=== PATIENT | male | born 2000 | race Caucasian/White ===

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

== ENCOUNTER 2024-10-17 19:36 | Inpatient (IN) ==
--- NOTE | 2024-10-17 20:10 | Emergency Department Note ---
Impression & Plan SBO (small bowel obstruction), Chest pain, Abnormal EKG, Abdominal pain, Nausea ED Provider Note NAME: TEA DOCKERY AGE: 24 SEX: M : 2000 ARRIVES VIA: Walk-In INFORMANT: Patient, ED PROVIDER(S): Britton Ndiaye DO CHIEF COMPLAINT: Abdominal pain HPI: The patient is a 24-year-old male who presented to the emergency department for an evaluation of abdominal pain and chest pain. He describes a tightness as well as pain through his chest and into his abdomen. He has a history of scar tissue from previous surgery. He is also had nausea vomiting. He denies have any fever or rectal bleeding. He said no hematemesis. The patient does have a follow-up with his specialist. He was in our facility a few weeks ago for similar complaints. He was able to be treated and released. At that time he did have a CT of his chest abdomen and pelvis. No acute process was noted. ROS: See above HPI for pertinent positives & negatives. A total of 10 systems reviewed and were otherwise negative. PAST MEDICAL HISTORY: See Below PAST SURGICAL HISTORY: See Below FAMILY HISTORY: See Below SOCIAL HISTORY: See Below HOME MEDICATIONS: See Below ALLERGIES: See Below VITALS: See Below PHYSICAL EXAMINATION: GENERAL: Patient is awake alert in no acute distress patient is resting comfortably and showing no signs of anxiety EYES: The conjunctivae are clear. The pupils are round and reactive. EARS, NOSE, MOUTH AND THROAT: The nose is without any evidence of any deformity. Mucous membranes are moist. Tongue is midline. NECK: The neck is nontender and supple. RESPIRATORY: Normal respiratory effort is noted there is no evidence of wheezing rhonchi or rales CARDIOVASCULAR: Regular rate and rhythm noted there no murmurs rubs or gallops normal S1 normal S2. GASTROINTESTINAL: The abdomen was diffusely tender. There was no guarding rigidity noted. MUSCULOSKELETAL/EXTREMITIES: There is no evidence of gross deformity full range of motion is noted in the hips and shoulders. SKIN: There is no obvious evidence of any rash. There are no petechiae, pallor or cyanosis noted. NEUROLOGIC: Patient is awake alert and oriented x3 strength is symmetric patellar reflexes are 2+ bilaterally MEDICAL DECISION MAKING: The patient is a 24-year-old male who presented to the emergency department for abdominal pain. The patient had abdominal pain as well as chest pain. He was seen in our facility for similar complaints recently. The patient had x-rays initially that did show multiple loops of dilated small bowel. For this reason CT of the chest abdomen and pelvis were obtained. He did have some EKG abnormalities. I am unsure the significance of the EKG abnormalities as troponin was normal and CT angiography revealed no acute process. CT of the abdomen and pelvis however does show a partial small bowel obstruction with no definite transition point. The patient was treated with IV fluids and IV pain medication in the emergency department. He was also treated with IV antiemetics. On reevaluation he was somewhat improved. Given the patient's findings on CT I do not feel that he would be a good candidate for outpatient management at this point. For this reason I will discuss his condition with the on-call hospitalist. Triage Nursing notes reviewed. Prior medical records reviewed Vital Signs: reviewed and remarkable for no significant abnormalities Differential diagnosis: Etiologies such as appendicitis, diverticulitis, obstruction, inflammatory bowel disease, renal colic, PUD, biliary pathology, pancreatitis, mesenteric ischemia, aortic pathology, infections, genitourinary, UTI, perforated viscus, as well as others were entertained. ER treatment provided: See below Diagnostics interpreted by me: ECG: EKG was obtained in the emergency department. My interpretation is normal sinus rhythm at 87 bpm. There is no ectopy. Nonspecific T wave abnormalities were noted. This was compared to a tracing from July 30, 2024. The T wave abnormalities are new otherwise no specific changes were noted. Cardiac Monitoring: An order was placed for continuous cardiac monitoring. The monitor shows a rate of 92 bpm with sinus rhythm. Laboratory studies: As stated above and show below. Imaging studies: See below. Radiographic imaging was reviewed by myself Consultation(s): I discussed this case with Dr. Gongora who is on-call for the [facility] hospitalist group. Past Med/Surg History Problem List (Updated 10/17/24 @ 22:02 by Britton Ndiaye DO) Nausea (Acute) Abdominal pain (Acute) Abnormal EKG (Acute) Chest pain (Acute) SBO (small bowel obstruction) (Acute) Abdominal spasms Intestinal adhesions Encounter for chronic pain management Abdominal pain (Chronic) Chronic post-traumatic stress disorder (PTSD) (Chronic) Surgical History S/P laparotomy with lysis of adhesions Abdominal surgeries x 4 Social History Smoking Status: Current every day smoker Tobacco Type: E-cigarettes / Vaping Hx Alcohol Use: No Hx Substance Use: No Preferred Language: Khmer Communication Ability: Effective Visual Impairment: No Limitations Hearing Ability: Normal [employer] Required: No Beliefs That Will Affect Care: None marital status: Single Current Living Situation: Parent 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 [employer] Feels Safe at Home: Yes Allergies Allergies Allergy/AdvReac Type Severity Reaction Status Date / Time metoclopramide Allergy Unknown panic Verified 10/17/24 20:19 attack Home Meds Home Medications Medication Instructions Recorded Confirmed baclofen 15 mg tablet 15 mg PO TID 10/17/24 10/17/24 cyclobenzaprine 5 mg tablet 5 mg PO TID PRN Spasms 10/17/24 10/17/24 dicyclomine 10 mg capsule 10 mg PO QID 10/17/24 10/17/24 gabapentin 100 mg capsule 100 mg PO TID 10/17/24 10/17/24 ondansetron HCl 4 mg tablet 4 mg PO Q8H PRN Nausea And Vomiting 10/17/24 10/17/24 pantoprazole 20 mg tablet,delayed 20 mg PO DAILY 10/17/24 10/17/24 release propranolol 20 mg tablet 20 mg PO BID 10/17/24 10/17/24 Previous Rx's Medication Instructions Recorded gabapentin 800 mg tablet 800 mg PO TID #90 tabs 10/26/23 Results & Data (ED) Vital Signs Vital Signs - 24 hr 10/17/24 19:44 10/17/24 20:02 10/17/24 20:02 Temperature 36.7 C Temperature Source Oral Pulse Rate 97 H Pulse Rate [Apical] Pulse Rhythm Regular Pulse Rhythm [Apical] Pulse Strength Normal Pulse Strength [Apical] Respiratory Rate 18 Respiratory Effort / Characteristics Non-Labored Spontaneous Non-Labored Respiratory Depth Normal Normal Respiratory Pattern Regular Blood Pressure 131/98 Blood Pressure [Right Arm] Blood Pressure Mean 109 Blood Pressure Mean [Right Arm] Blood Pressure Position Sitting Blood Pressure Position [Right Arm] Pulse Oximetry 99 Oxygen Delivery Method Room Air Room Air Sepsis Recent Fever Within 48 Hours No Sepsis New/Unexplained Change in Mental Status N/A Sepsis Action Taken by Nursing No Action Required 10/17/24 20:02 10/17/24 20:04 10/17/24 21:20 Temperature Temperature Source Pulse Rate 93 H Pulse Rate [Apical] 92 H Pulse Rhythm Pulse Rhythm [Apical] Regular Pulse Strength Pulse Strength [Apical] Normal Respiratory Rate 20 Respiratory Effort / Characteristics Non-Labored Respiratory Depth Normal Respiratory Pattern Regular Blood Pressure Blood Pressure [Right Arm] 137/88 Blood Pressure Mean Blood Pressure Mean [Right Arm] 104 Blood Pressure Position Blood Pressure Position [Right Arm] Sitting Pulse Oximetry 100 Oxygen Delivery Method Room Air Room Air Sepsis Recent Fever Within 48 Hours Sepsis New/Unexplained Change in Mental Status Sepsis Action Taken by [facility] Medications Current Medication List: was personally reviewed by me Laboratory Data Attestation: I reviewed the patient's lab results. 10/17/24 19:55 10/17/24 19:55 Lab Results 10/17/24 Range/Units 19:55 WBC 10.43 (4.8-10.8) K/ul RBC 5.07 (4.70-6.10) M/uL Hgb 14.4 (14.0-18.0) g/dl Hct 42.5 (42.0-52.0) % MCV 83.8 (80.0-100.0) fL MCH 28.4 (25.0-34.0) pg MCHC 33.9 (32.0-36.0) g/dL RDW Std Deviation 36.2 L (36.4-46.3) fL RDW Coeff of Lucille 12.1 (11.5-14.5) % Plt Count 248 (130-400) K/uL MPV 12.0 (9.4-12.4) fL Immature Gran % (Auto) 0.3 % Neut % (Auto) 82.9 % Lymph % (Auto) 8.4 % [place] % (Auto) 7.0 % Eos % (Auto) 1.2 % Baso % (Auto) 0.2 % Neut # (Auto) 8.65 H (1.40-6.50) K/uL Lymph # (Auto) 0.88 L (1.20-3.40) K/uL [place] # (Auto) 0.73 H (0.11-0.59) K/uL Eos # (Auto) 0.12 (0.00-0.50) K/uL Baso # (Auto) 0.02 (0.00-0.20) K/uL Immature Gran # (Auto) 0.03 (0.01-0.20) K/uL D-Dimer 690 H* (0-500) ug/L FEU Sodium 139 (136-145) mmol/L Potassium 3.9 (3.5-5.1) mmol/L Chloride 100 (98-107) mmol/L Carbon Dioxide 31 (21-32) mmol/L Anion Gap 8 (3-11) BUN 15 (6-23) mg/dl Creatinine 0.97 (0.6-1.4) mg/dl Est Cr Clr Drug Dosing 91.7 ml/min eGFR 110.41 BUN/Creatinine Ratio 15.5 (10-20) Glucose 94 (70-99(Fasting)) mg/dl Calcium 9.7 (8.6-10.3) mg/dl Total Bilirubin 1.0 (0.2-1.0) mg/dl AST 15 (13-39) U/L ALT 10 (7-52) U/L Alkaline Phosphatase 59 (34-104) U/L Troponin I High Sens 2.8 (0-20) pg/ml Total Protein 8.3 (6.0-8.3) gm/dl Albumin 4.8 (3.4-5.0) gm/dl Globulin 3.5 (2.5-4.0) gm/dl Albumin/Globulin Ratio 1.4 (0.9-2) Lipase 22 (11-82) U/L Administered Medications Morphine Sulfate (Morphine Sulfate 4 Mg/Ml 1 Ml Carp\Vial) 4 mg IV Q15M PRN PRN Reason: Pain Stop: 10/31/24 20:01 Last Admin: 10/17/24 21:26 Dose: 4 mg Documented By: Admin: 10/17/24 20:35 Dose: 4 mg Documented By: RANJIT Discontinued Medications Sodium Chloride (Nss) 1,000 mls @ 999 mls/hr IV .Q1H1M ONE Stop: 10/17/24 21:02 Last Admin: 10/17/24 20:34 Dose: 999 mls/hr Documented By: RANJIT Ioversol (Optiray 320 125ml) 115 ml IV ONCE ONE Stop: 10/17/24 21:08 Last Admin: 10/17/24 21:07 Dose: 115 ml Documented By: NETTA Ondansetron HCl (Ondansetron Inj 2 Mg/Ml 2 Ml Vial) 4 mg IV NOW STA Stop: 10/17/24 20:03 Last Admin: 10/17/24 20:36 Dose: 4 mg Documented By: RANJIT Imaging Data Attestation: I personally reviewed and interpreted this imaging study as follows: My Impression: 1 view chest x-ray was obtained in the emergency department. My interpretation is no free air or definite infiltrate, final report below. 1 view KUB was obtained in the emergency department. My interpretation is multiple loops of dilated small bowel, final report pending. CT of the abdomen pelvis was obtained in the emergency department. My interpretation is no free air, multiple loops of dilated small bowel were noted, final report below. Radiologist's Impression: Chest X-Ray 10/17/24 20:03 Exam(s): XR CXR 1 VIEW EXAM: XR Chest, 1 View CLINICAL HISTORY: Reason for exam: abd pain. TECHNIQUE: Frontal view of the chest. COMPARISON: Chest radiograph On 07/30/2024 FINDINGS: Hardware: None. Lungs/pleura: Normal. No focal consolidation. No pleural effusion or pneumothorax. Heart/mediastinum: Normal. No cardiomegaly. Soft tissues: Unremarkable. Bones: No acute fracture. Upper abdomen: Normal. IMPRESSION: No acute disease identified. Electronically signed by: Shaw Marshall M.D. 10/17/24 21:57 PM KUB X-Ray 10/17/24 20:03 Exam(s): XR KUB EXAM: XR Abdomen, 1 View CLINICAL HISTORY: Reason for exam: pain. TECHNIQUE: Frontal supine view of the abdomen/pelvis. COMPARISON: None FINDINGS: Hardware: None. Abdomen: Gaseous distention of small bowel, predominantly in the left abdomen. Large amount of stool in the right colon. No free air. Bones: Normal. Soft tissues: Normal. Lower chest: Normal. IMPRESSION: Gaseous distention of small bowel, predominantly in the left abdomen which may be secondary to ileus versus enteritis versus obstruction. Electronically signed by: Shaw Marshall M.D. 10/17/24 21:58 PM Abdomen/Pelvis CT 10/17/24 20:53 Exam(s): CT ABDOMEN + PELVIS With Contrast IV Amt: 115 ml optiray 320 EXAM: CT Abdomen and Pelvis With Intravenous Contrast CLINICAL HISTORY: Reason for exam: abd pain, abnl XRAY. TECHNIQUE: Axial computed tomography images of the abdomen and pelvis with intravenous contrast. CTDI is 8.74 mGy and DLP is 870.3 mGy-cm. Automated exposure control was utilized for the study. A dose lowering technique was utilized adhering to the principles of ALARA. CONTRAST: Patient received 115 ml optiray 320 of IV contrast COMPARISON: CT abdomen/pelvis on 07/31/2024 FINDINGS: Lung bases: Unremarkable. No mass. No consolidation. ABDOMEN: Liver: Unremarkable. No mass. Gallbladder and bile ducts: Unremarkable. No calcified stones. No ductal dilation. Pancreas: Unremarkable. No mass. No ductal dilation. Spleen: Unremarkable. No splenomegaly. Adrenals: Unremarkable. No mass. Kidneys and ureters: Unremarkable. No hydronephrosis or obstructing ureteral stone. Stomach and bowel: Dilated fluid and gas-filled small bowel loops in the left abdomen. Differential diagnosis includes enteritis versus ileus versus partial small bowel obstruction. PELVIS: Appendix: Prior appendectomy. Bladder: Unremarkable. No mass. Reproductive: Unremarkable as visualized. ABDOMEN and PELVIS: Intraperitoneal space: Small amount of fluid in the pelvis. No free air. Bones/joints: No acute fracture. No dislocation. Soft tissues: Unremarkable. Vasculature: Unremarkable. No abdominal aortic aneurysm. Lymph nodes: Unremarkable. No enlarged lymph nodes. IMPRESSION: 1. Dilated fluid and gas-filled small bowel loops in the left abdomen. Differential diagnosis includes enteritis versus ileus versus partial small bowel obstruction. 2. Small amount of fluid in the pelvis. Electronically signed by: Shaw Marshall M.D. 10/17/24 21:52 PM Chest CTA 10/17/24 20:53 Exam(s): CTA CHEST IV Amt: 115 ml optiray 320 EXAM: CT Angiography Chest With Intravenous Contrast CLINICAL HISTORY: Reason for exam: PE. TECHNIQUE: Axial computed tomographic angiography images of the chest with intravenous contrast. CTDI is 8.74 mGy and DLP is 870.3 mGy-cm. Automated exposure control was utilized for the study. A dose lowering technique was utilized adhering to the principles of ALARA. MIP reconstructed images were created and reviewed. COMPARISON: CT chest on 07/31/2024 FINDINGS: Pulmonary arteries: Unremarkable. No pulmonary embolus identified. Aorta: No acute findings. No aortic aneurysm or dissection. Lungs: Unremarkable. No mass. No consolidation. Pleural space: Unremarkable. No significant effusion. No pneumothorax. Heart: Unremarkable. No cardiomegaly. No significant pericardial effusion. No evidence of RV dysfunction. Mediastinum: Ingested material mildly distending the mid esophagus. Bones/joints: No acute fracture. No dislocation. Soft tissues: Unremarkable. Lymph nodes: Unremarkable. No enlarged lymph nodes. IMPRESSION: 1. No pulmonary embolus identified. 2. No aortic aneurysm or dissection. 3. Ingested material mildly distending the mid esophagus. 4. No acute pulmonary parenchymal abnormality identified. Electronically signed by: Shaw Marshall M.D. 10/17/24 21:48 PM Discharge Plan Visit Data Chief Complaint: Chest Pain Stated Complaint: ABD AND CHEST PAIN, TIGHTNESS, NAUSEA, VOMITING ED Provider: Britton Ndiaye Discharge Problem: SBO (small bowel obstruction), Chest pain, Abnormal EKG, Abdominal pain, Nausea Patient Disposition: Being Evaluated by Hospitalist Forms Stand Alone Forms: My [facility] Prescriptions Prescriptions: No Action gabapentin 800 mg tablet 800 mg PO TID Qty: 90 0RF ondansetron HCl 4 mg tablet 4 mg PO Q8H PRN (Reason: Nausea And Vomiting) pantoprazole 20 mg tablet,delayed release (DR/EC) 20 mg PO DAILY gabapentin 100 mg capsule 100 mg PO TID propranolol 20 mg tablet 20 mg PO BID dicyclomine 10 mg capsule 10 mg PO QID cyclobenzaprine 5 mg tablet 5 mg PO TID PRN (Reason: Spasms) baclofen 15 mg tablet 15 mg PO TID Referrals Referrals: Cleve Hdz M.D. [Primary Care Provider] -
[2024-10-17 20:14] LABS: Basophils # (auto) 0.02 K/uL (0.00-0.20); Basophils % (auto) 0.2 %; Eosinophils # (auto) 0.12 K/uL (0.00-0.50); Eosinophils % (auto) 1.2 %; Hematocrit (blood only) 42.5 % (42.0-52.0); Hemoglobin 14.4 g/dl (14.0-18.0); Immature Granulocytes # (auto) 0.03 K/uL (0.01-0.20); Immature Granulocytes % (auto) 0.3 %; Lymphocytes # (auto) 0.88 K/uL (1.20-3.40); Lymphocytes % (auto) 8.4 %; Mean Corpuscular Hemoglobin 28.4 pg (25.0-34.0); Mean Corpuscular Hgb Conc 33.9 g/dL (32.0-36.0); Mean Corpuscular Volume 83.8 fL (80.0-100.0); Monocytes # (auto) 0.73 K/uL (0.11-0.59); Neutrophils # (auto) 8.65 K/uL (1.40-6.50); Neutrophils % (auto) 82.9 %; Platelet Count 248 K/uL (130-400); RDW Coefficient of Variation 12.1 % (11.5-14.5); RDW Standard Deviation 36.2 fL (36.4-46.3); Red Blood Count 5.07 M/uL (4.70-6.10); White Blood Count 10.43 K/ul (4.8-10.8)
[2024-10-17] MEDS: SODIUM CHLORIDE 0.9% 1,000 ML IV ONE (20:34)
[2024-10-17 20:35] LABS: Albumin Globulin Ratio 1.4 (0.9-2); Albumin Level 4.8 gm/dl (3.4-5.0); BUN Creatinine Ratio 15.5 (10-20); Calcium 9.7 mg/dl (8.6-10.3); Creatinine Clr Calc Pharmacy 91.7 ml/min; Globulin 3.5 gm/dl (2.5-4.0); Potassium 3.9 mmol/L (3.5-5.1); Total Protein 8.3 gm/dl (6.0-8.3)
[2024-10-17] MEDS: MoRPHine SULFATE 4 MG/ML 1 ML CARP\\VIAL IV PRN (20:35)
[2024-10-17] MEDS: ONDANSETRON INJ 2 MG/ML 2 ML VIAL IV STA (20:36)
[2024-10-17 20:42] LABS: Troponin I High Sensitivity 2.8 pg/ml (0-20)
[2024-10-17] MEDS: OPTIRAY 320 125ml IV ONE (21:07)
[2024-10-17 21:23] LABS: D Dimer 690 ug/L FEU (0-500)
--- NOTE | 2024-10-17 21:49 | CT Scan Report ---
Exam(s): CTA CHEST IV Amt: 115 ml optiray 320 EXAM: CT Angiography Chest With Intravenous Contrast CLINICAL HISTORY: Reason for exam: PE. TECHNIQUE: Axial computed tomographic angiography images of the chest with intravenous contrast. CTDI is 8.74 mGy and DLP is 870.3 mGy-cm. Automated exposure control was utilized for the study. A dose lowering technique was utilized adhering to the principles of ALARA. MIP reconstructed images were created and reviewed. COMPARISON: CT chest on 07/31/2024 FINDINGS: Pulmonary arteries: Unremarkable. No pulmonary embolus identified. Aorta: No acute findings. No aortic aneurysm or dissection. Lungs: Unremarkable. No mass. No consolidation. Pleural space: Unremarkable. No significant effusion. No pneumothorax. Heart: Unremarkable. No cardiomegaly. No significant pericardial effusion. No evidence of RV dysfunction. Mediastinum: Ingested material mildly distending the mid esophagus. Bones/joints: No acute fracture. No dislocation. Soft tissues: Unremarkable. Lymph nodes: Unremarkable. No enlarged lymph nodes. IMPRESSION: 1. No pulmonary embolus identified. 2. No aortic aneurysm or dissection. 3. Ingested material mildly distending the mid esophagus. 4. No acute pulmonary parenchymal abnormality identified. Electronically signed by: Shaw Marshall M.D. 10/17/24 21:48 PM
--- NOTE | 2024-10-17 21:53 | CT Scan Report ---
Exam(s): CT ABDOMEN + PELVIS With Contrast IV Amt: 115 ml optiray 320 EXAM: CT Abdomen and Pelvis With Intravenous Contrast CLINICAL HISTORY: Reason for exam: abd pain, abnl XRAY. TECHNIQUE: Axial computed tomography images of the abdomen and pelvis with intravenous contrast. CTDI is 8.74 mGy and DLP is 870.3 mGy-cm. Automated exposure control was utilized for the study. A dose lowering technique was utilized adhering to the principles of ALARA. CONTRAST: Patient received 115 ml optiray 320 of IV contrast COMPARISON: CT abdomen/pelvis on 07/31/2024 FINDINGS: Lung bases: Unremarkable. No mass. No consolidation. ABDOMEN: Liver: Unremarkable. No mass. Gallbladder and bile ducts: Unremarkable. No calcified stones. No ductal dilation. Pancreas: Unremarkable. No mass. No ductal dilation. Spleen: Unremarkable. No splenomegaly. Adrenals: Unremarkable. No mass. Kidneys and ureters: Unremarkable. No hydronephrosis or obstructing ureteral stone. Stomach and bowel: Dilated fluid and gas-filled small bowel loops in the left abdomen. Differential diagnosis includes enteritis versus ileus versus partial small bowel obstruction. PELVIS: Appendix: Prior appendectomy. Bladder: Unremarkable. No mass. Reproductive: Unremarkable as visualized. ABDOMEN and PELVIS: Intraperitoneal space: Small amount of fluid in the pelvis. No free air. Bones/joints: No acute fracture. No dislocation. Soft tissues: Unremarkable. Vasculature: Unremarkable. No abdominal aortic aneurysm. Lymph nodes: Unremarkable. No enlarged lymph nodes. IMPRESSION: 1. Dilated fluid and gas-filled small bowel loops in the left abdomen. Differential diagnosis includes enteritis versus ileus versus partial small bowel obstruction. 2. Small amount of fluid in the pelvis. Electronically signed by: Shaw Marshall M.D. 10/17/24 21:52 PM
--- NOTE | 2024-10-17 21:58 | XRay Report ---
Exam(s): XR CXR 1 VIEW EXAM: XR Chest, 1 View CLINICAL HISTORY: Reason for exam: abd pain. TECHNIQUE: Frontal view of the chest. COMPARISON: Chest radiograph On 07/30/2024 FINDINGS: Hardware: None. Lungs/pleura: Normal. No focal consolidation. No pleural effusion or pneumothorax. Heart/mediastinum: Normal. No cardiomegaly. Soft tissues: Unremarkable. Bones: No acute fracture. Upper abdomen: Normal. IMPRESSION: No acute disease identified. Electronically signed by: Shaw Marshall M.D. 10/17/24 21:57 PM
--- NOTE | 2024-10-17 22:00 | XRay Report ---
Exam(s): XR KUB EXAM: XR Abdomen, 1 View CLINICAL HISTORY: Reason for exam: pain. TECHNIQUE: Frontal supine view of the abdomen/pelvis. COMPARISON: None FINDINGS: Hardware: None. Abdomen: Gaseous distention of small bowel, predominantly in the left abdomen. Large amount of stool in the right colon. No free air. Bones: Normal. Soft tissues: Normal. Lower chest: Normal. IMPRESSION: Gaseous distention of small bowel, predominantly in the left abdomen which may be secondary to ileus versus enteritis versus obstruction. Electronically signed by: Shaw Marshall M.D. 10/17/24 21:58 PM
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
[2024-10-17] MEDS ORDERED: MoRPHine SULFATE 2 MG/ML CARP IV PRN (23:08)
[2024-10-18] MEDS: KETOROLAC TROMETHAMINE 15 MG/ML VIAL IV STA (01:10)
[2024-10-18] MEDS ORDERED: POLYETHYLENE (MIRALAX) 17 GM PACK PO PRN (03:33)
[2024-10-18] MEDS ORDERED: CYCLOBENZAPRINE HCL 10 MG TAB PO PRN (03:42)
[2024-10-18] MEDS: MoRPHine SULFATE 4 MG/ML 1 ML CARP\\VIAL IV PRN (04:19)
[2024-10-18] MEDS: SODIUM CHLORIDE 0.9% 1,000 ML IV SCH (04:19)
[2024-10-18] MEDS: ONDANSETRON INJ 2 MG/ML 2 ML VIAL IV PRN (04:24)
[2024-10-18 06:10] LABS: Hematocrit (blood only) 34.2 % (42.0-52.0); Hemoglobin 11.8 g/dl (14.0-18.0); Mean Corpuscular Hgb Conc 34.5 g/dL (32.0-36.0); Platelet Count 166 K/uL (130-400); RDW Coefficient of Variation 11.9 % (11.5-14.5); RDW Standard Deviation 36.4 fL (36.4-46.3); Red Blood Count 4.07 M/uL (4.70-6.10); White Blood Count 6.23 K/ul (4.8-10.8)
[2024-10-18 06:33] LABS: BUN Creatinine Ratio 16.7 (10-20); Calcium 8.9 mg/dl (8.6-10.3); Creatinine Clr Calc Pharmacy 93.4 ml/min; Potassium 3.8 mmol/L (3.5-5.1)
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
[2024-10-18] MEDS: PANTOprazole 40 MG/10 ML SYR IV SCH (08:34)
[2024-10-18] MEDS ORDERED: PANTOprazole 40 MG TAB PO SCH (09:00)
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
--- NOTE | 2024-10-18 10:38 | XRay Report ---
KUB CLINICAL HISTORY: Follow up small bowel obstruction. COMPARISON STUDY: CT of the abdomen and pelvis October 17, 2024. FINDINGS: Multiple loops of moderately dilated small bowel measure up to 5 cm in caliber. Small bowel dilatation is similar to prior exam. There is no evidence for free air on supine exam. Excreted cont rast within the bladder from recent contrast-enhanced CT is incidentally noted. IMPRESSION: Findings suggestive of a persistent small bowel obstruction. ACT 112: Negative or not required by law. Electronically signed by: Scottie Villalpando M.D. 10/18/2024 10:36 AM
[2024-10-18] MEDS: PROPRANOLOL HCL 20 MG TAB PO SCH (10:56)
[2024-10-18] MEDS: GABAPENTIN 800 MG TAB PO SCH (10:56)
[2024-10-18] MEDS: BACLOFEN 10 MG TAB PO SCH (10:56)
[2024-10-18] MEDS: DICYCLOMINE HCL 10 MG CAP PO SCH (10:56)
[2024-10-18] MEDS: GABAPENTIN 100 MG CAP PO SCH (10:56)
[2024-10-18] MEDS: MAGNESIUM SULFATE / D5W 1 GM/100 ML BAG IV SCH (11:01)
[2024-10-18 11:03] LABS: Amphetamines+Metham, Urine Neg (Neg); Barbiturates, Urine Neg (Neg); Benzodiazepine, Urine Neg (Neg); Cocaine, Urine Neg (Neg); Fentanyl, Urine Neg (Neg); MDMA (Ecstacy), Urine Neg (Neg); Marijuana, Urine Neg (Neg); Methadone, Urine Neg (Neg); Opiate, Urine Pos (Neg); Phencyclidine, Urine Neg (Neg)
[2024-10-18] MEDS: PROCHLORPERAZINE 5 MG in SYRINGE 4 ML IV ONE (12:47)
[2024-10-18] MEDS: ALUMINUM/MAGNESIUM SUSP 30 ML UDC PO STA (14:48)
[2024-10-18] MEDS ORDERED: MoRPHine SULFATE 2 MG/ML CARP IV PRN (15:56)
[2024-10-18] MEDS: LORazepam 2 MG/1 ML VIAL IV PRN ×2 (17:01→21:57)
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
[2024-10-19] MEDS: MoRPHine SULFATE 2 MG/ML CARP IV PRN (07:56)
[2024-10-19 08:39] LABS: Mean Corpuscular Hemoglobin 28.9 pg (25.0-34.0); Mean Corpuscular Hgb Conc 34.4 g/dL (32.0-36.0); Mean Platelet Volume 12.6 fL (9.4-12.4); Platelet Count 156 K/uL (130-400); RDW Coefficient of Variation 11.8 % (11.5-14.5); Red Blood Count 3.81 M/uL (4.70-6.10); White Blood Count 4.63 K/ul (4.8-10.8)
[2024-10-19 08:59] LABS: BUN Creatinine Ratio 17.6 (10-20); Calcium 8.3 mg/dl (8.6-10.3); Creatinine Clr Calc Pharmacy 108.8 ml/min; Magnesium 1.6 mg/dl (1.7-2.4); Potassium 3.9 mmol/L (3.5-5.1)
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
--- NOTE | 2024-10-19 09:31 | XRay Report ---
KUB CLINICAL HISTORY: follow up SBO COMPARISON STUDY: CT of the abdomen and pelvis October 17, 2024. KUB October 18, 2024. FINDINGS: Multiple loops of moderately dilated small bowel persists. Small bowel loops measure up to 5.9 cm in caliber. There is no evidence for free air on supine exam. IMPRESSION: No change in small bowel dilatation. This is suggestive of a persistent small bowel obstr uction. ACT 112: Negative or not required by law. Electronically signed by: Scottie Villalpando M.D. 10/19/2024 9:29 AM
[2024-10-19] MEDS: MAGNESIUM SULFATE / D5W 1 GM/100 ML BAG IV SCH (09:55)
--- NOTE | 2024-10-19 10:16 | XRay Report ---
XR chest 1V portable CLINICAL HISTORY: chest pain COMPARISON STUDY: 10/17/2024 FINDINGS: Single view portable chest continues to show no acute cardiopulmonary process. There is no air space opacity, pleural effusion, or pneumothorax. The heart and pulmonary vascularity are unremar kable. There is moderate gaseous distention of small bowel loops in the left upper quadrant. IMPRESSION: No acute process in the chest. Moderately distended small bowel. ACT 112: Negative or not required by law. Electronically signed by: Annette Tay M.D. 10/19/2024 10:15 AM
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
[2024-10-19] MEDS ORDERED: D5W AND LACTATED RINGERS 1,000 ML IV SCH (12:15)
[2024-10-19] MEDS: KETOROLAC TROMETHAMINE 15 MG/ML VIAL IV PRN (12:42)
[2024-10-19] MEDS: DOCUSATE SODIUM 100 MG CAP PO SCH (13:36)
[2024-10-19] MEDS: POLYETHYLENE (MIRALAX) 17 GM PACK PO SCH (13:36)
[2024-10-19] MEDS: POTASSIUM CHLORIDE 20 MEQ in D5W AND LACTATED RINGERS 1,000 ML IV SCH (14:08)
[2024-10-19] MEDS: BACLOFEN 10 MG TAB PO PRN (18:00)
[2024-10-19] MEDS: PANTOprazole 40 MG/10 ML SYR IV SCH (20:42)
[2024-10-19] MEDS: ACETAMINOPHEN 500 MG TAB PO PRN (23:34)
[2024-10-20 06:41] LABS: Hematocrit (blood only) 31.8 % (42.0-52.0); Hemoglobin 11.3 g/dl (14.0-18.0); Mean Corpuscular Hemoglobin 29.3 pg (25.0-34.0); Mean Corpuscular Hgb Conc 35.5 g/dL (32.0-36.0); Mean Corpuscular Volume 82.4 fL (80.0-100.0); Mean Platelet Volume 12.1 fL (9.4-12.4); Platelet Count 151 K/uL (130-400); RDW Coefficient of Variation 11.9 % (11.5-14.5); RDW Standard Deviation 35.4 fL (36.4-46.3); Red Blood Count 3.86 M/uL (4.70-6.10)
[2024-10-20 07:03] LABS: BUN Creatinine Ratio 7.6 (10-20); Calcium 8.6 mg/dl (8.6-10.3); Creatinine Clr Calc Pharmacy 102.4 ml/min; Magnesium 1.5 mg/dl (1.7-2.4); Potassium 3.8 mmol/L (3.5-5.1)
[2024-10-20] MEDS: MAGNESIUM SULFATE / D5W 1 GM/100 ML BAG IV SCH (08:01)
[2024-10-20] MEDS: ENOXAPARIN INJ 40 MG/0.4 ML SYR SQ SCH (08:10)
--- NOTE | 2024-10-20 09:19 | Electrocardiogram Report ---
Test Reason : Blood Pressure : */* mmHG Vent. Rate : 87 BPM Atrial Rate : 87 BPM P-R Int : 142 ms QRS Dur : 94 ms QT Int : 370 ms P-R-T Axes : 70 87 31 degrees QTcB Int : 445 ms Normal sinus rhythm Nonspecific T wave abnormality Abnormal ECG When compared with ECG of 30-Jul-2024 22:37, T wave inversion now evident in Inferior leads T wave inversion now evident in Anterior leads Confirmed by Pastor Bryant ([id number]) on 10/20/2024 9:19:37 AM Referred By: Azucena Sorto Confirmed By: Pastor Bryant
--- NOTE | 2024-10-20 09:39 | XRay Report ---
KUB HISTORY: Small bowel obstruction f/u COMPARISON STUDY: 10/19/2024 FINDINGS: No significant interval changes have occurred. Continued to gaseous distention of proximal small bowel is noted as before. There is gas and fecal debris identified within a nondistended colon. There are nondistended loops of ileum identified in the pelvis. IMPRESSION: No significant interval change. Findings of partial small bowel obstruction persist. ACT 112: Negative or not required by law. The above report was generated using voice recognition software. It may contain grammatical, syntax o r spelling errors. Electronically signed by: Annette Tay M.D. 10/20/2024 9:37 AM
--- NOTE | 2024-10-20 09:39 | Electrocardiogram Report ---
Test Reason : Blood Pressure : */* mmHG Vent. Rate : 77 BPM Atrial Rate : 77 BPM P-R Int : 154 ms QRS Dur : 90 ms QT Int : 420 ms P-R-T Axes : 71 96 78 degrees QTcB Int : 475 ms Normal sinus rhythm Rightward axis Borderline ECG When compared with ECG of 17-Oct-2024 19:49, (unconfirmed) T wave inversion no longer evident in Inferior leads T wave inversion less evident in Anterior leads Confirmed by Pastor Bryant ([id number]) on 10/20/2024 9:39:19 AM Referred By: Azucena Sorto Confirmed By: Pastor Bryant
--- NOTE | 2024-10-20 11:13 | Hospitalist Progress Note ---
Date of Service October 20, 2024 Assessment & Plan (1) SBO (small bowel obstruction): (2) Chest pain: (3) Abdominal pain: (4) Intestinal adhesions: Plan 24-year-old male PMHx multiple abdominal surgeries with adhesions, generalized abdominal pain, and GERD presented for generalized chest and abdominal pain, Admitted formerly [facility] diagnosis of SBO, overall stable in last 24 hours. No new nausea, vomiting but persistent chest/ belly tightness. #SBO, abdominal pain *RFs: Adhesions 2/2 past surgeries,Prior ex lap w/ lysis of adhesions in [place] last year. Constipation d/t massive Kratom use/ Baclofen use. - Surgery, GI on board: Continue medical management. No surgery indicated. Clear diet today. - PPI IV BID ongoing. - IVF changed to D5 LR + 20meq Kcl given Glu 50-60s this morning Antiemetics - Pain control - avoid opiates as able, Toradol available. Morphine for breakthrough - KUB repeat 10/20: pretty stable bowel gas pattern, stool loaded. - CTAP: dilated fluid gas dilated small bowel loops in left abdomen, small amount of fluid in the pelvis, also notes ingested material mildly distending in mid esophagus #Fever: *Persistent high grade fever from last night. T Max: 39.1 - No URI sx, no urine issue. - WBCs: lower side, 4.5k - chest imaging unremarkable. - Urine CS and Blood CS sent. - CRP, Procal ordered. - Tylenol 1 gm Q8hr PRN: 2 doses today. #Chest pain *likley muscle tightness. EKG/ Troponin: Unremarkable. CTA NEGATIVE for PE. Repeat cxr negative but continued perseverance on "scar tissue. Ativan PRN for anxiety. Remains NSR on telemetry #GERD Protonix BID. #Hypomagnesemia - 10/20: 1.5 - Gave 2 bags of Mg, will recheck AM lab. #Psych Reports stable on propranolol, increased to 20mg daily. Lorazepam added on. Dispo: Pending stability DVT proph: SCDs, Lovenox SQ added. Ambulation encouraged as above. Diet: Liquid diet and advance as tolerate. Admission and Anticipated Discharge Date Admission Date: October 17, 2024 Supervising Physician Co-Signing Physician Notes ATTESTATION I also saw the patient and confirmed gramajo portions of the history and exam. I agree with the impression and plan in the resident documentation, and as summarized below. Patient seems about the same - this is the first time I am seeing him, but per his self-evaluation and comparison to prior notes. Had some jello and broth without difficulty. EXAM 95/59, 104, 20 He is febrile per VS, although noted that he has a heating pad across his abdomen CV regular Lungs CTA ABD non focal, generalized pain but no rebound/guarding DATA Labs WBC 4.50 HgB 11.3 BMP unremarkable Imaging KUB with PSBO IMPRESSION & PLAN PSBO Abdominal pain, acute on chronic Appreciate GI and surgery notes Continue clears, promote ambulation KUB in AM Continue bowel regimen Need to clarify if he actually has a temperature; will have him hold off on KPad for 30 mins and recheck Additional per resident documentation Subjective Endorses chest and belly tightness persistent. No new nausea, vomiting. Last time he has vomiting was past Thursday( 10/17). He expresses he is taking Kratum fo r 1.5 years now, buys this from [employer] as they have better deal. He believes Kratum is the only thing that helps him best with his pain, heart numbness and tightness. He started it on his self research and does not want to take regular opioids as they are not great for lot of side effects. Curious if visceral manipulation physical therapy would help him. Review of Systems Review of Systems: As per HPI Physical Exam Physical Exam: Constitutional: Frail appearing, Anxious, malnourished. HEENT: Atraumatic, Normocephalic, No conjunctival injection CVS:Looks well perfused. Respiratory: No increased work of breathing GI: Mildly distended, Diffusely tender, no rigidity or guarding. Normal Bowel sounds + MSK: No gross deformities noted Skin: Warm, Dry, No rashes Neuro: Alert, Oriented to TPP, No Focal deficit Psych: Anxious, fairly cooperative on exam Results & Data Results & Data Vital Signs (Past 12 Hours) Vital Signs Temp Pulse Pulse Resp BP Pulse Ox O2 Del Method 10/20/24 08:02 38.9 C H 95 H 16 105/64 96 Room Air 10/20/24 07:00 100 H 10/20/24 03:59 38.5 C H 96 H 20 107/67 96 Room Air 10/19/24 23:53 37.8 C H 92 H 20 109/70 99 Room Air
[2024-10-20] MEDS: NICOTINE 21 MG/24 HR TDSY TD SCH (11:30)
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
[2024-10-20 15:37] LABS: Codeine Urine NEGATIVE ng/mL (<50); Hydrocodone Urine NEGATIVE ng/mL (<50); Hydromor Urine NEGATIVE ng/mL (<50); Morphine Urine >10000 ng/mL (<50); Norhydrocodone Conf Ur NEGATIVE ng/mL (<50); Noroxycodone Urine NEGATIVE ng/mL (<50); Oxycodone Urine NEGATIVE ng/mL (<50); Oxymorph Urine NEGATIVE ng/mL (<50)
[2024-10-20] MEDS: NICOTINE POLACRILEX 2 MG GUM MT PRN (17:44)
[2024-10-21] MEDS: IBUPROFEN 200 MG TAB PO STA (03:03)
[2024-10-21 06:15] LABS: Hematocrit (blood only) 30.5 % (42.0-52.0); Hemoglobin 10.7 g/dl (14.0-18.0); Mean Corpuscular Hgb Conc 35.1 g/dL (32.0-36.0); Mean Corpuscular Volume 82.7 fL (80.0-100.0); Platelet Count 138 K/uL (130-400); RDW Coefficient of Variation 11.9 % (11.5-14.5); RDW Standard Deviation 35.8 fL (36.4-46.3); Red Blood Count 3.69 M/uL (4.70-6.10); White Blood Count 5.65 K/ul (4.8-10.8)
[2024-10-21 06:33] LABS: BUN Creatinine Ratio 9.3 (10-20); Calcium 8.2 mg/dl (8.6-10.3); Creatinine Clr Calc Pharmacy 88.5 ml/min; Magnesium 1.6 mg/dl (1.7-2.4); Potassium 3.5 mmol/L (3.5-5.1)
[2024-10-21 06:40] LABS: Basophils # (auto) 0.01 K/uL (0.00-0.20); Basophils % (auto) 0.2 %; Dohle Bodies 1+; Immature Granulocytes # (auto) 0.01 K/uL (0.01-0.20); Immature Granulocytes % (auto) 0.2 %; Lymphocytes # (auto) 0.54 K/uL (1.20-3.40); Lymphocytes % (auto) 9.6 %; Monocytes # (auto) 0.62 K/uL (0.11-0.59); Neutrophils # (auto) 4.47 K/uL (1.40-6.50)
--- NOTE | 2024-10-21 07:10 | Hospitalist Progress Note ---
Date of Service October 21, 2024 Assessment & Plan (1) SBO (small bowel obstruction): (2) Chest pain: (3) Abdominal pain: (4) Intestinal adhesions: Plan 24-year-old male PMHx multiple abdominal surgeries with adhesions, generalized abdominal pain, and GERD presented for generalized chest and abdominal pain, Admitted wi diagnosis of SBO, overall stable in last 24 hours. No new vomiting but persistent chest/ belly tightness and nauseous. #SBO, abdominal pain *RFs: Adhesions 2/2 past surgeries,Prior ex lap w/ lysis of adhesions in [place] last year. Constipation d/t massive Kratom use/ Baclofen use. - Surgery, GI on board: Continue medical management. No surgery indicated. Continue Clear diet - PPI IV BID ongoing. - IVF changed to D5 LR + 20meq Kcl given Glu 50-60s this morning Antiemetics - Pain control - avoid opiates as able, Toradol available. Morphine for breakthrough - KUB repeat 10/20: pretty stable bowel gas pattern, stool loaded. - CTAP: dilated fluid gas dilated small bowel loops in left abdomen, small amount of fluid in the pelvis, also notes ingested material mildly distending in mid esophagus #Fever: *Persistent fever for 24 hour. Afebrile since 4 am. - No focal infection identified. Could be baclofen withdrawal, given empty baclofen bottles found in his chela, 2 days prior. - Does not look septic. No abnormal injection scars in arm. - Cardiac exam looks normal too. - No URI sx, no urine issue. - WBCs: stable - Chest imaging unremarkable. - Urine CS and Blood CS sent. Pending - CRP, Procal : mildly elevated. - Tylenol 1 gm Q8hr PRN. #Chest pain *likley muscle tightness. Under Baclofen. EKG/ Troponin: Unremarkable. CTA NEGATIVE for PE. Repeat cxr negative but continued perseverance on "scar tissue. Ativan PRN for anxiety. Remains NSR on telemetry #GERD Protonix BID. #Hypomagnesemia - 10/20: 1.5--->> 2: 1.6 - Gave 1 bags of Mg, will recheck AM lab. #Psych Reports stable on propranolol, increased to 20mg daily. Lorazepam added on. Dispo: Pending stability DVT proph: SCDs, Lovenox SQ added. Ambulation encouraged as above. Diet: Liquid diet. Admission and Anticipated Discharge Date Admission Date: October 17, 2024 Supervising Physician Co-Signing Physician Notes ATTESTATION I also saw the patient and confirmed gramajo portions of the history and exam. I agree with the impression and plan in the resident documentation, and as summarized below. Patient seems about the same as yesterday. While he has some documented fevers, he did not look as if he had a fever. There was some question if it could be related to the large heating pad he is using on his stomach or related to withdrawal from medications he may have been taking previously. His abdominal and chest pain seems to be about his baseline. He does not some generalized body aches - which he has had since arrival. \\ Tolerating bland diet. No nausea or emesis. EXAM VS as noted; afebrile at current CV regular Lungs CTA ABD non focal, generalized pain but no rebound/guarding; similar to yesterday DATA Labs WBC 5.65 BMP unremarkable Resp panel negative Imaging KUB with improving gas pattern IMPRESSION & PLAN PSBO Abdominal pain, acute on chronic Intermittent fever, although may be artifactual; clinically, not consistent with infectious source KUB shows improving gas pattern, and he is tolerating diet thus far - continue with conservative management If clinical signs/symptoms to suggest infection, consider CT Blood and urine cultures pending; hold off on antibiotics at this point. He asks for additional pain medications, although discussed that additional opiates would likely delay return of normal bowel function. Additional per resident documentation Subjective Endorses similar chest tightness and belly tightness like before. No new distension. Feels nauseous, no vomiting. No shivering/ chills when he has fever, but feels hot. Last fever 4 am today, no fever fever then. Tolerated clear diet yesterday. Review of Systems Review of Systems: As per HPI Physical Exam Physical Exam: Constitutional: Frail appearing, Anxious, malnourished. HEENT: Atraumatic, Normocephalic, No conjunctival injection CVS:Looks well perfused. Respiratory: No increased work of breathing GI: Mildly distended, Diffusely tender, no rigidity or guarding. Normal Bowel sounds + MSK: No gross deformities noted Skin: Warm, Dry, No rashes Neuro: Alert, Oriented to TPP, No Focal deficit Psych: Anxious, fairly cooperative on exam Results & Data Results & Data Vital Signs (Past 12 Hours) Vital Signs Temp Pulse Pulse Resp BP BP Pulse Ox 10/21/24 04:09 37.8 C H 98 H 18 94 10/21/24 02:40 39.4 C H 106 H 17 101/57 L 92 10/20/24 23:22 38.6 C H 97 H 16 98/56 L 96 10/20/24 21:51 38.5 C H 93 H 18 10/20/24 21:43 93 H 10/20/24 20:27 38.1 C H 99 H 128/64 10/20/24 19:51 39.3 C H 10/20/24 19:49 10/20/24 19:35 39.3 C H 111 H 18 118/64 98 O2 Del Method 10/21/24 04:09 Room Air 10/21/24 02:40 Room Air 10/20/24 23:22 Room Air 10/20/24 21:51 10/20/24 21:43 10/20/24 20:27 10/20/24 19:51 10/20/24 19:49 Room Air 10/20/24 19:35 Room Air Resident Activity Tracking Resident Involvement: Resident Care Provided Care Provided: Adult Hospital Medicine
[2024-10-21] MEDS: MAGNESIUM SULFATE / D5W 1 GM/100 ML BAG IV ONE (07:51)
--- NOTE | 2024-10-21 10:06 | XRay Report ---
KUB HISTORY: Acute generalized abdominal pain with small bowel obstruction SBO COMPARISON: 10/20/2024, CT 10/17/2024 FINDINGS: Air-filled loops of large and small bowel. Small bowel loops are again dilated measuring up to approximately 4 cm transversely, previously 5 cm. There is moderate colonic fecal retention. No renal calculi. No ureteral calculi. No pneumoperitoneum or pneumatosis. Mild right basilar atelectasi s. No fracture. IMPRESSION: Persistent small bowel distention which has mildly improved from yesterday's exam. Continued follow-u p recommended. ACT 112: Negative or not required by law. The above report was generated using voice recognition software. It may contain grammatical, syntax o r spelling errors. Electronically signed by: Chito Douglas M.D. 10/21/2024 10:03 AM
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
[2024-10-21 13:01] LABS: Adenovirus PCR Not Detected (NotDetected); Bordetella parapertussis PCR Not Detected (NotDetected); Bordetella pertussis PCR Not Detected (NotDetected); Chlamydia pneumoniae PCR Not Detected (NotDetected); Coronavirus 229E PCR Not Detected (NotDetected); Coronavirus CoV-2 (COVID19)PCR Not Detected (NotDetected); Coronavirus HKU1 PCR Not Detected (NotDetected); Coronavirus NL63 PCR Not Detected (NotDetected); Coronavirus OC43PCR Not Detected (NotDetected); Human Metapneumovirus PCR Not Detected (NotDetected); Influenza A PCR Not Detected (NotDetected); Influenza B PCR Not Detected (NotDetected); Mycoplasma pneumoniae PCR Not Detected (NotDetected); Parainfluenza Virus 1 PCR Not Detected (NotDetected); Parainfluenza Virus 2 PCR Not Detected (NotDetected); Parainfluenza Virus 3 PCR Not Detected (NotDetected); Parainfluenza Virus 4 PCR Not Detected (NotDetected); Respiratory Syncytial VirusPCR Not Detected (NotDetected); Rhinovirus/Enterovirus PCR Not Detected (NotDetected)
[2024-10-21] MEDS: MELATONIN 3 MG TAB PO PRN (22:11)
--- NOTE | 2024-10-22 05:55 | Surgery Progress Note ---
Date of Service October 22, 2024 Assessment & Plan (1) SBO (small bowel obstruction): Plan: Continues to complain of chest tightness and abdominal bloating this morning. Patient is tolerating clears, passing gas however no BM as of yet VSS and afebrile Encourage ambulation and OOB during the day Admission and Anticipated Discharge Date Admission Date: October 17, 2024 Supervising Physician Co-Signing Physician Notes Discussed with WILBER, agree with above. Continues with complaints of chest tightness and hardness in his abdomen. KUB continues to slightly improved. May advance to full liquids and then to low fiber as tolerated. No surgical intervention planned at this time. Subjective Patient states he is feeling about the same today as he did yesterday Continues to complain about feeling tightness throughout his chest and abdominal bloating Passing gas however denies BM Tolerating clear liquids Physical Exam Constitutional: WD/WN, vitals as above Respiratory: normal respiratory effort, lungs clear to auscultation Cardiovascular: Rate/Rhythm: regular rate Gastrointestinal (Abdomen): Abdomen soft, minimally distended, nontender. No rebound or guarding Skin: no rashes, warm and dry Results & Data Vital Signs (Past 12 Hours) Vital Signs Temp Pulse Pulse Resp BP Pulse Ox O2 Del Method 10/22/24 04:00 36.5 C 82 16 96/63 L 98 Room Air 10/21/24 23:00 37.0 C 68 16 101/66 96 Room Air 10/21/24 22:38 Room Air 10/21/24 22:30 70 10/21/24 19:30 36.6 C 58 L 16 108/69 96 Room Air PG Care Time/CCT Total # of Minutes Spent Total Time Spent with Patient: Total time spent is greater than 50% in coordination of care (as documented) at patient's floor/unit and/or counseling patient: Coding [place] [address] SUB INP/OBS CARE 07/16MIN Patient Type Established Medical Decision Making Straight Forward Diagnoses SBO (small bowel obstruction) K56.609
[2024-10-22 06:21] LABS: Hematocrit (blood only) 30.3 % (42.0-52.0); Hemoglobin 10.3 g/dl (14.0-18.0); Mean Corpuscular Hemoglobin 28.7 pg (25.0-34.0); Mean Corpuscular Volume 84.4 fL (80.0-100.0); Mean Platelet Volume 12.8 fL (9.4-12.4); Platelet Count 133 K/uL (130-400); RDW Coefficient of Variation 12.1 % (11.5-14.5); RDW Standard Deviation 37.3 fL (36.4-46.3); Red Blood Count 3.59 M/uL (4.70-6.10); White Blood Count 5.57 K/ul (4.8-10.8)
[2024-10-22] MEDS ORDERED: MoRPHine SULFATE 2 MG/ML CARP IV PRN (06:44)
[2024-10-22 06:49] LABS: Basophils # (auto) 0.02 K/uL (0.00-0.20); Basophils % (auto) 0.4 %; Dohle Bodies 1+; Eosinophils # (auto) 0.08 K/uL (0.00-0.50); Eosinophils % (auto) 1.4 %; Immature Granulocytes # (auto) 0.05 K/uL (0.01-0.20); Immature Granulocytes % (auto) 0.9 %; Lymphocytes # (auto) 1.12 K/uL (1.20-3.40); Lymphocytes % (auto) 20.1 %; Monocytes # (auto) 0.85 K/uL (0.11-0.59); Monocytes % (auto) 15.3 %; Neutrophils # (auto) 3.45 K/uL (1.40-6.50); Neutrophils % (auto) 61.9 %; Polychromasia 1+
[2024-10-22 06:54] LABS: BUN Creatinine Ratio 15.4 (10-20); Calcium 8.3 mg/dl (8.6-10.3); Creatinine Clr Calc Pharmacy 78.3 ml/min; Magnesium 1.8 mg/dl (1.7-2.4); Potassium 3.7 mmol/L (3.5-5.1)
--- NOTE | 2024-10-22 08:27 | XRay Report ---
Clinical history: Pain One view of the abdomen was obtained Comparison is made to the prior examination dated 10/20/2024 Findings: There has been slight improvement in small bowel dilatation, which may represent improving distal small bowel obstruction. No renal or ureteral calculi are seen. No foreign body is evident. No osseous abnormality is seen Impression: Apparent slight improvement in small bowel obstruction Electronically signed by Jason Rodriguez 10-22-2024 08:26 AM
[2024-10-22] MEDS: MoRPHine SULFATE 2 MG/ML CARP IV PRN (08:54)
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
--- NOTE | 2024-10-22 12:23 | XRay Report ---
Clinical History: Chest pain and fever Technique: PA and lateral views of the chest were obtained Comparison is made to the prior examination dated 10/19/2024 Findings: There is possible mild right lower lobe pneumonia. The heart size is within normal limits. No pleural effusion or pneumothorax is seen. There is no definite pulmonary nodule. No fracture is noted. No foreign body is seen Impression: Suspected mild right lower lobe pneumonia ACT 112: Positive. There are findings on this exam that require communication between the performing entity and the patient following Patient Test Result Information Act ([place] ACT 112) guidelines. Electronically signed by Jason Rodriguez 10-22-2024 12:22 PM
[2024-10-22] MEDS: MAGNESIUM HYDROXIDE SUSP 30 ML UDC PO PRN (16:40)
[2024-10-22] MEDS: AMOXICILLIN/CLAVULANATE 875 MG TAB PO SCH (16:41)
[2024-10-22] MEDS: D5W AND NSS 1,000 ML IV SCH (18:45)
[2024-10-22] MEDS ORDERED: GLUCOSE 10 TAB/TUBE PO PRN (19:06)
[2024-10-22] MEDS ORDERED: DEXTROSE 50% 50 ML SYRINGE IV PRN (19:06)
[2024-10-22] MEDS ORDERED: GLUCOSE 40% GEL 15 GM TUBE PO PRN (19:06)
[2024-10-22] MEDS ORDERED: CARBOHYDRATES FOR HYPOGLYCEMIA PO PRN (19:06)
[2024-10-22] MEDS ORDERED: GLUCAGON FOR INJ 1 MG VIAL SQ PRN (19:06)
--- NOTE | 2024-10-22 19:10 | XRay Report ---
INDICATION: Abdominal pain TECHNIQUE: Portable supine upright view radiograph of the abdomen was obtained. COMPARISON: Abdominal radiograph October 20, 2024. FINDINGS: Redemonstrated air distended loops of small bowel over the left hemiabdomen measuring up to 4.5 cm in caliber. This is similar in degree to the previous radiographic evaluation on October 20, 2024. Less colonic stool is identified in this examination. Evaluation for free air is limited due to supine technique. IMPRESSION: Redemonstrated air distended loops of small bowel of the left hemiabdomen measuring up to 4.5 cm. This is similar in degree to the previous radiographic evaluation on October 20, 2024. Less colonic stool is identified in this examination. The findings of reduced colonic stool could be due to recent passage of stool versus worsening small bowel obstruction. Please clinically correlate. Electronically signed by Charbel Smith 10-22-2024 7:10 PM
[2024-10-22] MEDS: AMPICILLIN/SULBACTAM SOD 1,500 MG/100 ML BAG IV SCH (21:10)
[2024-10-23 06:33] LABS: Hematocrit (blood only) 32.2 % (42.0-52.0); Hemoglobin 11.1 g/dl (14.0-18.0); Mean Corpuscular Hemoglobin 29.1 pg (25.0-34.0); Mean Corpuscular Hgb Conc 34.5 g/dL (32.0-36.0); Mean Corpuscular Volume 84.3 fL (80.0-100.0); Mean Platelet Volume 12.5 fL (9.4-12.4); Platelet Count 200 K/uL (130-400); RDW Coefficient of Variation 12.1 % (11.5-14.5); Red Blood Count 3.82 M/uL (4.70-6.10); White Blood Count 7.11 K/ul (4.8-10.8)
[2024-10-23 06:51] LABS: Basophils # (auto) 0.04 K/uL (0.00-0.20); Basophils % (auto) 0.6 %; Eosinophils # (auto) 0.07 K/uL (0.00-0.50); Immature Granulocytes # (auto) 0.02 K/uL (0.01-0.20); Immature Granulocytes % (auto) 0.3 %; Lymphocytes # (auto) 0.95 K/uL (1.20-3.40); Lymphocytes % (auto) 13.4 %; Monocytes % (auto) 12.7 %; Neutrophils # (auto) 5.13 K/uL (1.40-6.50); Toxic Granulation 1+
[2024-10-23 07:04] LABS: BUN Creatinine Ratio 10.9 (10-20); Calcium 8.2 mg/dl (8.6-10.3); Creatinine Clr Calc Pharmacy 81.2 ml/min; Magnesium 1.7 mg/dl (1.7-2.4); Potassium 3.9 mmol/L (3.5-5.1)
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
--- NOTE | 2024-10-23 08:36 | XRay Report ---
HISTORY: Small bowel obstruction. TECHNIQUE: Supine portable AP abdominal radiograph. COMPARISON: Abdominal radiograph dated 10/22/2024. CT of the abdomen pelvis dated 07/30/2024. FINDINGS: Gas-filled dilated loops of bowel throughout the abdomen. Small bowel loops measuring up to 5 cm in diameter. No obvious free air, pneumatosis, portal venous gas. No significant formed stool is appreciated in the colon. No acute osseous abnormality. IMPRESSION: * Findings similar to the prior study with gas-filled dilated loops of bowel throughout the abdomen. Small bowel loops measuring up to approximately 5 cm. This could represent sequelae of small bowel obstruction or ileus. This could be further evaluated with CT of the abdomen and pelvis. Electronically signed by Endy Martinez 10-23-2024 08:36 AM
--- NOTE | 2024-10-23 09:57 | Surgery Progress Note ---
Date of Service October 23, 2024 Assessment & Plan (1) SBO (small bowel obstruction): Plan: Persistent partial small bowel obstruction versus ileus. Offered NG tube, but Pait which went with no nausea and does not desire at this time Continue current management, if worsening symptoms would recommend NG tube Consider repeat CT scan or contrasted study early next week if symptoms persist Patient needs to ambulate, get out of the bed Surgical follow-up, call with questions or concerns (2) S/P laparotomy with lysis of adhesions: Admission and Anticipated Discharge Date Admission Date: October 17, 2024 Subjective History of multiple abdominal surgeries, admitted for small bowel obstruction. On with small amount of emesis overnight. No current nausea. Feels tight. Passing flatus, no bowel movements. Physical Exam Constitutional: WD/WN, vitals as above Gastrointestinal (Abdomen): Inspection/Auscultation: + abdomen distended and + abdominal surgical scar Percussion/Palpation: + abdomen tender (Mild diffuse); no guarding and abdomen not rigid Results & Data Vital Signs (Past 12 Hours) Vital Signs Temp Pulse Resp BP BP Pulse Ox O2 Del Method 10/23/24 07:56 38.6 C H 110 H 24 112/49 L 94 Room Air 10/23/24 03:00 36.7 C 73 16 99/67 L 97 Room Air 10/22/24 22:08 Room Air 10/22/24 22:00 37.9 C H 98 H 16 107/72 97 Room Air Laboratory Results Laboratory Results - last 24 hr 10/22/24 10/22/24 10/22/24 12:25 16:59 17:00 WBC RBC Hgb Hct MCV MCH MCHC RDW Std Deviation RDW Coeff of Lucille Plt Count MPV Immature Gran % (Auto) Neut % (Auto) Lymph % (Auto) [place] % (Auto) Eos % (Auto) Baso % (Auto) Neut # (Auto) Lymph # (Auto) [place] # (Auto) Eos # (Auto) Baso # (Auto) Immature Gran # (Auto) Toxic Granulation Sodium Potassium Chloride Carbon Dioxide Anion Gap BUN Creatinine Est Cr Clr Drug Dosing eGFR BUN/Creatinine Ratio Glucose POC Glucose 111 H 60 L* 67 L* Fasting Glucose Calcium Magnesium 10/22/24 10/22/24 10/22/24 17:17 18:46 19:04 WBC RBC Hgb Hct MCV MCH MCHC RDW Std Deviation RDW Coeff of Lucille Plt Count MPV Immature Gran % (Auto) Neut % (Auto) Lymph % (Auto) [place] % (Auto) Eos % (Auto) Baso % (Auto) Neut # (Auto) Lymph # (Auto) [place] # (Auto) Eos # (Auto) Baso # (Auto) Immature Gran # (Auto) Toxic Granulation Sodium Potassium Chloride Carbon Dioxide Anion Gap BUN Creatinine Est Cr Clr Drug Dosing eGFR BUN/Creatinine Ratio Glucose POC Glucose 70 61 L* 80 Fasting Glucose Calcium Magnesium 10/23/24 10/23/24 10/23/24 00:00 05:30 06:24 WBC 7.11 RBC 3.82 L Hgb 11.1 L Hct 32.2 L MCV 84.3 MCH 29.1 MCHC 34.5 RDW Std Deviation 37.0 RDW Coeff of Lucille 12.1 Plt Count 200 D MPV 12.5 H Immature Gran % (Auto) 0.3 Neut % (Auto) 72.0 Lymph % (Auto) 13.4 [place] % (Auto) 12.7 Eos % (Auto) 1.0 Baso % (Auto) 0.6 Neut # (Auto) 5.13 Lymph # (Auto) 0.95 L [place] # (Auto) 0.90 H Eos # (Auto) 0.07 Baso # (Auto) 0.04 Immature Gran # (Auto) 0.02 Toxic Granulation 1+ Sodium 140 Potassium 3.9 Chloride 105 Carbon Dioxide 30 Anion Gap 5 BUN 13 Creatinine 1.19 Est Cr Clr Drug Dosing 81.2 eGFR 86.40 BUN/Creatinine Ratio 10.9 Glucose 102 H POC Glucose 99 103 H Fasting Glucose 102 H Calcium 8.2 L Magnesium 1.7 10/23/24 08:16 WBC RBC Hgb Hct MCV MCH MCHC RDW Std Deviation RDW Coeff of Lucille Plt Count MPV Immature Gran % (Auto) Neut % (Auto) Lymph % (Auto) [place] % (Auto) Eos % (Auto) Baso % (Auto) Neut # (Auto) Lymph # (Auto) [place] # (Auto) Eos # (Auto) Baso # (Auto) Immature Gran # (Auto) Toxic Granulation Sodium Potassium Chloride Carbon Dioxide Anion Gap BUN Creatinine Est Cr Clr Drug Dosing eGFR BUN/Creatinine Ratio Glucose POC Glucose 110 H Fasting Glucose Calcium Magnesium Diagnostic Findings KUB personally viewed and interpreted agree with the assessment of stable to moderately increased small bowel distention. There is air in his right colon. Chest X-Ray 10/22/24 10:31 Clinical History: Chest pain and fever Technique: PA and lateral views of the chest were obtained Comparison is made to the prior examination dated 10/19/2024 Findings: There is possible mild right lower lobe pneumonia. The heart size is within normal limits. No pleural effusion or pneumothorax is seen. There is no definite pulmonary nodule. No fracture is noted. No foreign body is seen Impression: Suspected mild right lower lobe pneumonia ACT 112: Positive. There are findings on this exam that require communication between the performing entity and the patient following Patient Test Result Information Act ([place] ACT 112) guidelines. Electronically signed by Jason Rodriguez 10-22-2024 12:22 PM KUB X-Ray 10/22/24 18:24 INDICATION: Abdominal pain TECHNIQUE: Portable supine upright view radiograph of the abdomen was obtained. COMPARISON: Abdominal radiograph October 20, 2024. FINDINGS: Redemonstrated air distended loops of small bowel over the left hemiabdomen measuring up to 4.5 cm in caliber. This is similar in degree to the previous radiographic evaluation on October 20, 2024. Less colonic stool is identified in this examination. Evaluation for free air is limited due to supine technique. IMPRESSION: Redemonstrated air distended loops of small bowel of the left hemiabdomen measuring up to 4.5 cm. This is similar in degree to the previous radiographic evaluation on October 20, 2024. Less colonic stool is identified in this examination. The findings of reduced colonic stool could be due to recent passage of stool versus worsening small bowel obstruction. Please clinically correlate. Electronically signed by Charbel Smith 10-22-2024 7:10 PM KUB X-Ray 10/23/24 08:00 HISTORY: Small bowel obstruction. TECHNIQUE: Supine portable AP abdominal radiograph. COMPARISON: Abdominal radiograph dated 10/22/2024. CT of the abdomen pelvis dated 07/30/2024. FINDINGS: Gas-filled dilated loops of bowel throughout the abdomen. Small bowel loops measuring up to 5 cm in diameter. No obvious free air, pneumatosis, portal venous gas. No significant formed stool is appreciated in the colon. No acute osseous abnormality. IMPRESSION: * Findings similar to the prior study with gas-filled dilated loops of bowel throughout the abdomen. Small bowel loops measuring up to approximately 5 cm. This could represent sequelae of small bowel obstruction or ileus. This could be further evaluated with CT of the abdomen and pelvis. Electronically signed by Endy Martinez 10-23-2024 08:36 AM PG Care Time/CCT Total # of Minutes Spent Total Time Spent with Patient: Total time spent is greater than 50% in coordination of care (as documented) at patient's floor/unit and/or counseling patient: Coding Level of Care Code 62963 SUB INP/OBS CARE 2/35MIN Diagnoses SBO (small bowel obstruction) K56.609 S/P laparotomy with lysis of adhesions Z98.890
[2024-10-23] MEDS: OPTIRAY 320 100ml IV ONE (10:41)
--- NOTE | 2024-10-23 11:09 | CT Scan Report ---
HISTORY: Pneumonia TECHNIQUE: CT imaging of the chest was performed with IV contrast. Images are presented in axial, sagittal, and coronal reformats. COMPARISON: Chest CT dated 10/17/2024. FINDINGS: Lungs: Multifocal mixed alveolar and groundglass opacity involving the right upper lobe consistent with multifocal pneumonia. The right middle lobe and right lower lobe are clear of focal consolidation. No left lung consolidation. Small right and trace left pleural effusions. No pneumothorax. Central tracheobronchial tree is patent. Heart/Mediastinum: Normal heart size. No pericardial effusion. Coronary artery calcifications are not present. No suspicious mediastinal or hilar lymph nodes. Included thyroid gland is unremarkable. Thoracic esophagus is unremarkable. Vasculature: No thoracic aortic aneurysm. Main pulmonary artery is normal in caliber. No significant atherosclerotic vascular disease. Soft Tissues: Soft tissues of the chest wall are unremarkable. Upper Abdomen: Findings in the upper abdomen are described on separately reported CT of the abdomen pelvis acquired at the same time. Please see separate report. Bones: Mild degenerative changes of the spine. No acute osseous abnormality. IMPRESSION: * Multifocal pneumonia involving the right upper lobe. Short interval follow-up to resolution is recommended. * Small right and trace left pleural effusions. * Additional chronic and/or incidental findings as detailed above. ACT 112: Positive. There are findings on this exam that require communication between the performing entity and the patient following Patient Test Result Information Act ([place] ACT 112) guidelines. Electronically signed by Endy Martinez 10-23-2024 11:04 AM
--- NOTE | 2024-10-23 11:36 | CT Scan Report ---
HISTORY: Pneumonia and shortness of breath. TECHNIQUE: Helical CT imaging of the abdomen and pelvis was performed with IV contrast. Images are presented in axial reformats.Coronal images are provided, which are incomplete. There are no sagittal reconstructions. COMPARISON: CT of the chest from the same day. FINDINGS: Lung Bases/Inferior Mediastinum: Small right and trace left pleural effusions. Mild adjacent compressive atelectasis. Liver: Hepatomegaly with the liver measuring 19.6 cm in craniocaudal dimension. Gallbladder: Unremarkable Spleen: Unremarkable Adrenals: Unremarkable Pancreas: Unremarkable Kidneys: Small focal area of ill-defined hypoenhancement involving the anterior aspect of the superior pole of the right kidney on series 7 image 124 measures 1.8 cm in size. No hydronephrosis. No nephrolithiasis. Stomach/Bowel: Distal esophagus, stomach, and duodenum are unremarkable. The colon is unremarkable. dilated loops of fluid-filled small bowel in the left abdomen measuring up to 4.7 cm in diameter with transition point on series 7 image 227 concerning for small bowel obstruction. The colon is normal in caliber. Lymph nodes: Unremarkable Vasculature: Unremarkable Pelvis: Urinary bladder is unremarkable. Small volume of nonspecific free pelvic fluid is likely reactive. Soft Tissues: Unremarkable Bones: Unremarkable IMPRESSION: * Limited evaluation with no coronal or sagittal reconstructions available. * Dilated loops of small bowel in the left abdomen measuring upto 4.7 cm in diameter concerning for small bowel obstruction with suspected transition point in the left mid abdomen. * Small focal ill-defined area of hypoenhancement along the anterior aspect of the right kidney superior pole could represent focal pyelonephritis or other process. Recommend correlation with urinalysis. This can be further evaluated with contrast-enhanced multiphasic renal CT or MRI. * Small volume of nonspecific free pelvic fluid is likely reactive. * Hepatomegaly with the liver measuring 19.6 cm in length. * Small right and trace left pleural effusions. ACT 112: Positive. There are findings on this exam that require communication between the performing entity and the patient following Patient Test Result Information Act ([place] ACT 112) guidelines. Electronically signed by Endy Martinez 10-23-2024 11:11 AM
--- NOTE | 2024-10-24 07:34 | XRay Report ---
EXAM: XR KUB/Abdomen 1 view CLINICAL HISTORY: SBO TECHNIQUE: X-ray image of the abdomen obtained in frontal view. COMPARISON: Prior X-ray dated 10/23/2024 for comparison. FINDINGS: Gas Pattern: Gas pattern within the abdomen is normal. No evidence of bowel obstruction or distention. Prominent bowel loops are seen. Soft Tissues: Soft tissues of the abdomen appear normal without evidence of masses or calcifications. Liver, spleen, and kidneys are of normal size and position. IMPRESSION: 1. No acute abnormalities identified. 2. Prominent bowel loops are seen. Interval improvement. Electronically signed by Sarwat Sahu 10-24-2024 07:34 AM
--- NOTE | 2024-10-24 07:45 | Surgery Progress Note ---
Date of Service October 24, 2024 Assessment & Plan (1) Ileus: Plan: air throughout the bowel no mechanical obstruction begin diet ambulate if recurrent symptoms will need UGI with SBFT Admission and Anticipated Discharge Date Admission Date: October 17, 2024 Subjective had BM yesterday passing flatus pain in chest and abdomen about the same no fevers Review of Systems Constitutional: + body aches; no fever and no chills Respiratory: + pain on inspiration; no cough and no d yspnea Cardiovascular: + chest pain; no radiating jaw, neck or arm pain Gastrointestinal: + abdominal pain; no nausea and no vomit ing Genitourinary: no problem reported Musculoskeletal: no back pain Neurologic: no localized weakness and no generalized weakness Physical Exam Constitutional: WD/WN, vitals as above Eyes: no scleral abnormality Neck: trachea midline Respiratory: normal respiratory effort, lungs clear to auscultation Cardiovascular: RRR, no murmur, no edema Gastrointestinal (Abdomen): Inspection/Auscultation: abdomen normal to inspect ion, normal bowel sounds and + abdominal surgical scar; abdomen not distended and no visible herniation Percussion/Palpation: + abdomen tender and abdomen soft; abdomen not rigid Musculoskeletal: Head/Neck/Chest: normocephalic and head atraumatic Skin: no rashes, warm and dry Results & Data Vital Signs (Past 12 Hours) Vital Signs Temp Pulse Pulse Resp BP BP Pulse Ox 10/24/24 07:41 65 10/24/24 02:27 36.7 C 57 L 18 94/55 L 99 10/24/24 00:08 36.9 C 62 20 96/59 L 100 10/23/24 22:00 62 10/23/24 19:48 36.8 C 72 20 109/70 96 O2 Del Method 10/24/24 07:41 10/24/24 02:27 Room Air 10/24/24 00:08 Room Air 10/23/24 22:00 10/23/24 19:48 Room Air Diagnostic Findings XR KUB/Abdomen 1 view CLINICAL HISTORY: SBO TECHNIQUE: X-ray image of the abdomen obtained in frontal view. COMPARISON: Prior X-ray dated 10/23/2024 for comparison. FINDINGS: Gas Pattern: Gas pattern within the abdomen is normal. No evidence of bowel obstruction or distention. Prominent bowel loops are seen. Soft Tissues: Soft tissues of the abdomen appear normal without evidence of masses or calcifications. Liver, spleen, and kidneys are of normal size and position. IMPRESSION: 1. No acute abnormalities identified. 2. Prominent bowel loops are seen. Interval improvement.
[2024-10-24 09:04] LABS: Basophils # (auto) 0.01 K/uL (0.00-0.20); Basophils % (auto) 0.2 %; Eosinophils # (auto) 0.08 K/uL (0.00-0.50); Eosinophils % (auto) 1.7 %; Hematocrit (blood only) 26.9 % (42.0-52.0); Hemoglobin 9.1 g/dl (14.0-18.0); Immature Granulocytes # (auto) 0.04 K/uL (0.01-0.20); Immature Granulocytes % (auto) 0.8 %; Lymphocytes # (auto) 1.17 K/uL (1.20-3.40); Lymphocytes % (auto) 24.4 %; Mean Corpuscular Hemoglobin 28.9 pg (25.0-34.0); Mean Corpuscular Hgb Conc 33.8 g/dL (32.0-36.0); Mean Corpuscular Volume 85.4 fL (80.0-100.0); Monocytes % (auto) 12.5 %; Neutrophils % (auto) 60.4 %; Platelet Count 197 K/uL (130-400); RDW Coefficient of Variation 12.7 % (11.5-14.5); RDW Standard Deviation 39.3 fL (36.4-46.3); Red Blood Count 3.15 M/uL (4.70-6.10)
[2024-10-24 09:23] LABS: BUN Creatinine Ratio 9.2 (10-20); Calcium 8.1 mg/dl (8.6-10.3); Creatinine Clr Calc Pharmacy 114.3 ml/min; Magnesium 1.9 mg/dl (1.7-2.4); Potassium 3.5 mmol/L (3.5-5.1)
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
[2024-10-24] MEDS ORDERED: traMADol HCL 50 MG TABLET PO STA (15:50)
[2024-10-24 16:57] LABS: Ferritin 312.2 ng/ml (8-388)
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
== END 2024-10-24 18:34 | disposition home or self-care (01) | DRG 388 ==
LOC: SUATTDRO → ED 19:36 → 2N 22:59 → SUATTDRO 22:59 → 2N 10-18 03:10